=== PATIENT | female | born 1985 | race Two or more races ===

== ENCOUNTER 2021-07-10 08:35 | Outpatient (CLI) | payer SELFPAY ==
[2021-07-10] MEDS ORDERED: LIDOCAINE SOLN 4% 50 ML BOTTLE ONE (09:01)
[2021-07-10] MEDS ORDERED: DAKINS HALF STRENGTH (0.25%) 480 ML BOTTLE ONE (09:34)
== END 2021-07-10 23:59 | disposition home or self-care (01) ==
LOC: WOU 08:35
PROVIDERS: ATTEND Surgery
DX: T81.31XA Disruption of external operation (surgical) wound, not elsewhere classified, initial encounter (principal)
CPT/HCPCS: 99205; A6253; G0463